=== PATIENT | male | born 1970 | race African-American/Black ===

== ENCOUNTER 2018-10-29 15:03 | Inpatient (IN) | payer MEDICARE ==
[~2018-10-29] VITALS: Ht 175.3 cm; Wt 97.0 kg
[2018-10-29] VITALS (34 sets, daily range): BP systolic 130–207; BP diastolic 81–120; BMI 30.5
--- NOTE | ~2018-10-29 | HEMODYNAMI ---
PATIENT:NINA ESCALANTE MEDICAL RECORD: [id number] : 72 LOCATION:[place] [address] ADMISSION DATE: 10/29/18 Generatedon:10/30/201814:35 Patient name: NINA ESCALANTE Patient #: [id number] SSN: : 1970 Date of study: 10/30/2018 Page: Of Hemodynamic Procedure Report Patient Data Patient Demographics Procedure consent was obtained First Name: NINA Gender: Male Last Name: AVA : 1970 Patient #: [id number] Age: 48 year(s) Race: Black Additional ID: [id number] Contact details [address]: [address] [place] [address] [address] State: [place] City: [place] Zip code: [address] Past Medical History Allergies: No known allergies Admission Admission Data Admission Date: 10/29/2018 Admission Time: 17:11 Admit Source: Other Room #: [facility] Weight (lbs.): 213.85 Weight (kg.): 97 Lab Results Lab Result Date: 10/30/2018 Lab Result Time: 0:00 Biochemistry Name Units Result Min Max BUN mg/dl 22 --(----)-* 7 18 Creatinine mg/dl 1.9 --(----)-* 0.6 1.3 CBC Name Units Result Min Max Hemoglobin g/dl 15.9 --(--*-)-- 13.5 17.5 Procedure Procedure Types Cath Procedure Diagnostic Procedure LHC LHC w/Coronaries Procedure Description Procedure Date Procedure Date: 10/30/2018 Procedure Start Time: 14:22 Procedure End Time: 14:34 Procedure Staff Name Function Adelfo Rivera MD Performing Physician Kaleb Mcleod RT Monitor Sharda Merida RN Nurse Mena Mosher RT Scrub Procedure Data Cath Procedure Fluoroscopy Diagnostic fluoroscopy Total fluoroscopy Time: 3.5 time: 3.5 min min Diagnostic fluoroscopy Total fluoroscopy dose: 639 dose: 639 mGy mGy Contrast Material Contrast Material Type Amount (ml) Isovue 370 70 Entry Location Entry Primary Successful Side Size Upsize Upsize Entry Closure Rodriguez ccessful Closure Location (Fr) 1 (Fr) 2 (Fr) Remarks Device Remarks Radial Right 5 Fr Mechanical artery Compression Estimated blood loss: 5 ml Diagnostic catheters Device Type Used For End Catheter Placement DIAGNOSTIC Lapaz 110cm 5 LV Angiography Fr catheter ([id number]) DIAGNOSTIC JL 3.5 5Fr Left Coronary catheter ([id number]) Angiography DIAGNOSTIC Pigtail 5Fr LV Angiography catheter ([id number]) Procedure Complications No complications Procedure Medications Medication Administration Route Dosage 0.9% NaCl I.V. 100 ml/hr Oxygen etCO2 Nasal cannula 2 l/min Lidocaine 2% added to field 20 Heparin Flush Bag added to field 2 bags (1000units/500ml NS) Radial Cocktail added to field 1 syringe (Verapamil 2mg/Nitro 400mcg/Heparin 1500units) Versed I.V. 2 mg Fentanyl I.V. 50 mcg Fentanyl I.V. 50 mcg Hemodynamics Rest HGB: 15.9 (g/dl) Heart Rate: 80 (bpm) Pressure Samples Time Site Value (mmHg) Purpose Heart Use Rate(bpm) 14:31 LV 103/-5,-4 Snapshot 81 Gradients Valve Time Site Site Mean SEP/DFP Peak To Heart Use 1 2 (mmHg) (sec/min) Peak Rate (mmHg) (bpm) Aortic 14:31 LV AO 86 Snapshots Pre Cath Intra NCS Post Cath Vital Signs Time Heart Resp SPO2 etCO2 NIBP (mmHg) Rhythm Pain Sedation Rate (ipm) (%) (mmHg) Status Level (bpm) 14:01:50 77 12 97 22.4 178/125(156) NSR 0 (11) 10(A) , No pain 14:06:25 77 11 98 26.1 181/127(169) NSR 0 (11) 10(A) , No pain 14:10:49 77 16 97 24.6 173/120(138) NSR 0 (11) 10(A) , No pain 14:15:19 75 16 98 27.6 172/110(148) NSR 0 (11) 10(A) , No pain 14:19:50 82 14 97 24.6 155/116(132) NSR 0 (11) 9(A) , No pain 14:25:17 75 14 98 22.4 162/138(149) NSR 0 (11) 9(A) , No pain 14:29:40 83 13 97 32.8 152/111(127) NSR 0 (11) 9(A) , No pain 14:34:00 79 14 98 17.9 163/104(143) NSR 0 (11) 10(A) , No pain Medications Time Medication Route Dose Verified Delivered Reason Notes E ffectiveness by by 14:03:23 0.9% NaCl I.V. 100 Adelfo Sharda used for ml/hr Miguel Fuad procedure MD WALTER 14:03:31 Oxygen etCO2 2 l/min Adelfo Sharda used for Nasal Miguel Fuad procedure cannula MD WALTER 14:03:36 Lidocaine 2% added 20ml Adelfo Emanuel for local to vial [facility] anesthetic field MD HERNANDEZ 14:03:41 Heparin Flush added 2 bags Adelfo Adelfo used for Bag to [facility] procedure (1000units/500ml field MD HERNANDEZ NS) 14:03:46 Radial Cocktail added 1 Adelfo Emanuel used for ([facility]apamil to syringe [facility]/Nitro field MD HERNANDEZ 400mcg/Heparin 1500units) 14:10:01 Versed I.V. 2 mg Adelfo Sharda for MiguelAnthony Merida sedation MD WALTER 14:10:13 Fentanyl I.V. 50 mcg Adelfo Sharda for MiguelAnthony Merida sedation MD WALTER 14:15:34 Fentanyl I.V. 50 mcg Adelfo Sharda for MiguelAnthony Merida sedation MD WALTERcertified indoor environmentalist Log Time Note 13:30:32 Kaleb Mcleod RT(R) sent for patient. Start room use. 13:37:33 Time tracking: Regular hours (M-F 7:00 - 5:00) 13:37:37 Plan of Care:Hemodynamics will remain stable., Cardiac rhythm will remain stable., Comfort level will be maintained., Respiratory function will remain adequate., Patient/ family verbilizes understanding of procedure., Procedure tolerated without complication., Recovers from procedure without complications.. 13:37:48 Patient Weight : 213.85 lbs 13:38:03 Lab Result : BUN 22 mg/dl 13:38:03 Lab Result : Hemoglobin 15.9 g/dl 13:38:03 Lab Result : Creatinine 1.9 mg/dl 13:55:15 Patient received from CVICU to [facility] 2 Alert and oriented. Rolandosferred to table in Supine position. 13:55:16 Warm blankets applied, and ruchi hugger turned on for patient comfort. 13:55:17 Correct patient and procedure confirmed by team. 13:55:18 Signed procedure consent form obtained from patient. 13:55:19 ECG and BP/O2 sat monitors applied to patient. 14:00:26 Vital chart was started 14:03:23 0.9% NaCl 100 ml/hr I.V. was administered by Sharda Merida RN; used for procedure; 14:03:31 Oxygen 2 l/min etCO2 Nasal cannula was administered by Sharda Merida RN; used for procedure; 14:03:36 Lidocaine 2% 20ml vial added to field was administered by Adelfo Rivera MD; for local anesthetic; 14:03:41 Heparin Flush Bag (1000units/500ml NS) 2 bags added to field was administered by Adelfo Rivera MD; used for procedure; 14:03:46 Radial Cocktail (Verapamil 2mg/Nitro 400mcg/Heparin 1500units) 1 syringe added to field was administered by Adelfo Rivera MD; used for procedure; 14:05:22 Baseline sample Acquired. 14:05:27 Rhythm: paced 14:05:30 Full Disclosure recording started 14:05:53 H&P Date Dictated: 10/29/2018 Within 30 days and on chart.. 14:05:55 Pre-procedure instructions explained to patient. 14:05:56 Pre-op teaching completed and patient verbalized understanding. 14:06:00 Patient NPO since Breakfast. 14:06:25 Patient allergic to No known allergies 14:06:31 Is the patient allergic to Iodine/contrast media? No. 14:06:44 Use device set Radial Dx or PCI 14:06:45 ACIST Syringe (94400) opened to sterile field. 14:06:46 Medline Cath Pack ([id number]) opened to sterile field. 14:06:47 Bag Decanter (2002) opened to sterile field. 14:06:47 DIAGNOSTIC WIRE .035 260cm J wire (023557) opened to sterile field. 14:06:48 ACIST Hand Control (61289) opened to sterile field. 14:06:49 ACIST Manifold (70524) opened to sterile field. 14:06:50 Tegaderm 4 x 4 (1626W) opened to sterile field. 14:06:51 MBrace Wrist Support ([id number]) opened to sterile field. 14:06:53 SHEATH 6FR Slender (29-2415) opened to sterile field. 14:08:37 Admit Source: Other 14:08:47 Was the patient premedicated? No 14:08:55 Is patient on blood thinner?No 14:08:57 Patient diabetic? No. 14:08:59 Previous problem with sedation/anesthesia? No ? 14:09:00 Snore? Yes 14:09:01 Sleep apnea? Yes 14:09:02 Deviated septum? No 14:09:03 Opens mouth fully? Yes 14:09:04 Sticks out tongue? Yes 14:09:05 Airway obstruction? No ? 14:09:08 Dentures? No ? 14:09:11 Pre procedure: right dorsailis pedis pulse 2+ Normal; easily identifiable; not easily obliterated 14:09:15 Pre procedure: left dorsailis pedis pulse 2+ Normal; easily identifiable; not easily obliterated 14:09:21 Patient pain scale 0/10 ?. 14:09:26 IV patent on arrival in right forearm with 0.9% NaCl at KVO. 14:09:28 Lab results completed and on chart. 14:09:37 Right Radial & Right Groin area was prepped with chlora-prep and draped in sterile fashion 14:09:38 Alarms reviewed by R. N. 14:09:38 Sharps counted by scrub and verified by R.N. 14:09:39 Physician arrived 14:09:39 --------ALL STOP TIME OUT------ 14:09:40 Final Timeout: patient, procedure, and site verified with staff and physician. All members of the team are in agreement. 14:09:41 Right groin site verified by team. 14:10:01 Versed 2 mg I.V. was administered by Sharda Merida RN; for sedation; 14:10:13 Fentanyl 50 mcg I.V. was administered by Sharda Merida RN; for sedation; 14:10:19 Maximum allowable Isovue 370 dose 255ml. Physician notified. (300ml for normal creatinines. For patients with creatinine of 1.7 or higher multiply weight(kg) x 5 divided by creatinine.) 14:15:14 Fire Safety Assessment: A--An alcohol-based skin anteseptic being used preoperatively., C--Open oxygen or nitrous oxide is being used., D--An ESU, laser, or fiber-optic light is being used. 14:15:34 Fentanyl 50 mcg I.V. was administered by Sharda Merida RN; for sedation; 14:15:47 Physical assessment completed. ASA score P 2 - A patient with mild systemic disease as per Adelfo Rivera MD. 14:15:51 Sedation plan: IV Moderate Sedation Medication:Versed, Fentanyl 14:22:28 Procedure started. 14:22:36 Local anesthetic to right radial artery with Lidocaine 2% by Adelfo Rivera MD.INITIAL ACCESS ONLY 14:22:48 A 5 Fr sheath was inserted into the Right Radial artery 14:23:36 A DIAGNOSTIC Lapaz 110cm 5 Fr catheter ([id number]) was advanced over the wire and used for LV Angiography. 14:26:32 RCA angiography performed. 14:26:37 Injector settings: Ml/sec: 3, Volume: 6, 14:27:11 Catheter removed. 14:27:30 A DIAGNOSTIC JL 3.5 5Fr catheter ([id number]) was advanced over the wire and used for Left Coronary Angiography. 14:28:56 LCA angiography performed. 14:29:00 Injector settings: Ml/sec: 3, Volume: 6, 14:29:39 Catheter removed. 14:29:59 A DIAGNOSTIC Pigtail 5Fr catheter ([id number]) was advanced over the wire and used for LV Angiography. 14:31:31 LV hemodynamics recorded. 14:31:32 LV gram done using MARTIN 14:31:35 Injector settings: Ml/sec: 5, Volume: 15, 14:32:18 EF : 55 % 14:32:21 Catheter removed. 14:32:43 TR BAND Standard ([id number]) opened to sterile field. 14:32:56 Sheath removed intact; hemostasis achieved with Mechanical Compression to the Right Radial artery. 14:32:58 Procedure ended.(Physican Out) 14:33:05 Fluoroscopy time 03.50 minutes. 14:33:10 Fluoroscopy dose: 639 mGy 14:33:10 Flurop Dose total: 639 14:33:15 Contrast amount:Isovue 370 70ml. 14:33:16 Sharps counted by scrub and verified by R.N. 14:33:18 TR band inflated with 10cc of air. 14:33:20 Insertion/operative site no bleeding no hematoma. 14:33:31 Post right radial artery:stable 14:33:33 Post Procedure Pulses reassessed and unchanged 14:33:35 Post procedure rhythm: unchanged. 14:33:38 Estimated blood loss: 5 ml 14:33:39 Post procedure instruction explained to patient.Patient verbalizes understanding. 14:33:40 Patient needs reinforcement of post procedure teaching. 14:33:46 Procedure and supply charges have been captured, reviewed, submitted and are correct. 14:33:50 Procedure Complication : No complications 14:33:53 Vital chart was stopped 14:33:54 See physician's report for complete and final results. 14:33:58 Report given to CVICU. 14:34:04 Patient transfered to CVICU with Stretcher. 14:34:06 Procedure ended. 14:34:06 Full Disclosure recording stopped 14:34:16 End room use (Document Last) Device Usage Item Name Manufacture Quantity Catalog Hospital Part Current Minimal Lot# / Number Charge Number Stock Stock Serial# Code ACIST Acist 1 38880 614015 182617 839556 20 Syringe Medical (75039) Systems Inc Medline Medline 1 [id number] 870686 04120 953747 5 Cath Pack ([id number]) Bag Microtek 1 2001S 744380 19842 706587 5 Decanter Medical Inc. (2001S) DIAGNOSTIC St True 1 611813 794064 224767 491544 30 WIRE .035 260cm J wire (979853) ACIST Hand Acist 1 15019 885441 948347 322448 5 Control Medical (40072) Systems Inc ACIST Acist 1 39629 540102 514419 570442 5 Manifold Medical (95746) Systems Inc Tegaderm 4 3M 1 1626W 575897 512222 347118 5 x 4 (1626W) MBrace Advanced 1 140-0250-00 421416 05211 452903 5 Wrist Vascular Support Dynamics ([id number]) SHEATH 6FR Terumo 1 [id number] 490419 382250 101320 5 Slender (80-1060) DIAGNOSTIC Terumo 1 40-5017 707734 753733 757263 5 Lapaz 110cm 5 Fr catheter (533767) DIAGNOSTIC Cardinal 1 [id number] 157809 819559 633661 5 JL 3.5 5Fr Health catheter (586446F) DIAGNOSTIC Cardinal 1 [id number] 015588 437782 410807 5 Pigtail 5Fr Health catheter (916463U) TR BAND Terumo 1 [id number] 160311 471685 607789 40 Standard ([id number]) Signature Audit [place] Stage Time Signature Unsigned Intra-Procedure 10/30/2018 Mena Mosher 2:35:12 PM RT(R) Signatures Monitor : Kaleb Mcleod RT Signature : Date : Time : [place] [id number] [place] [address]
--- NOTE | ~2018-10-29 | OP ---
PATIENT NAME: NINA ESCALANTE MEDICAL RECORD: [id number] :72 [place] ADMISSION DATE:10/29/18 SURGEON: BRIAN GUERRERO MD DATE OF OPERATION: 10/30/2018 PROCEDURE: Left heart catheterization, selective coronary angiography, right radial approach. CATHETERS: Radial sheath, Haddock catheter, as well as a JL3.5 and a pigtail. Procedure was well tolerated. The patient returned to the neal. Sheath removed. TR band was placed. FINDINGS: Left ventriculography in 30-degree MARTIN view: Normal wall motion, normal systolic function. CORONARY ANATOMY: LEFT MAIN: Left main is free of disease. LAD: LAD is free of disease in the diagonal system. CIRCUMFLEX: Has an OM1, has about 30% stenosis, no flow obstructive disease. RIGHT CORONARY ARTERY: Dominant artery, free of disease. IMPRESSION: LV systolic function, early atherosclerotic plaquing. TRANSINT:[id number] Voice Confirmation ID: [id number] DOCUMENT ID: [id number] BRIAN GUERRERO MD CC: [id number] DICTATION DATE: 10/30/18 1443 AWNINGS MECHANIC: 10/30/18 1537 ADM IN [facility] [address] [place] [address]
[2018-10-29] MEDS ORDERED: LISINOPRIL10 MG PO (15:10)
[2018-10-29 16:06] LABS: BASOPHILS 0.2 % (0-2); EOSINOPHILS 0 % (0-7); HEMATOCRIT 45.2 % (42.0-54.0); HEMOGLOBIN 16.2 g/dL (13.5-17.5); IMMATURE GRANULOCYTES 0.2 % (0-5); LYMPHOCYTES 15.8 % (15-50); MCH 31.4 pg (26.0-34.0); MCHC 35.8 g/dL (31.0-37.0); MCV 87.6 fL (80.0-100.0); MEAN PLATELET VOLUME 10.4 fL (7.4-10.4); MONOCYTES 0.3 % (2-11); NEUTROPHILS 83.5 % (40-80); PLATELET COUNT 222 10x3/uL (130-400); RBC 5.16 10x6/uL (4.20-6.10); RDW 13.9 % (11.5-14.5); WBC 6.3 10x3/uL (4.8-10.8)
[2018-10-29 16:23] LABS: INR 1.1 (0.85-1.17); PROTIME 13.7 SECONDS (11.6-15.0)
[2018-10-29 16:31] LABS: ALBUMIN 3.9 g/dL (3.4-5.0); ALKALINE PHOSPHATASE 69 U/L (46-116); ALT (SGPT) 29 U/L (10-68); BILIRUBIN - TOTAL 0.41 mg/dL (0.2-1.3); CALC OSMOLALITY 279 mosm/kg (275-300); CALCIUM 9.3 mg/dL (8.5-10.1); CARBON DIOXIDE 22.3 mmol/L (21.0-32.0); CHLORIDE - SERUM 103 mmol/L (98-107); CREATININE - SERUM 1.8 mg/dL (0.6-1.3); GLUCOSE 130 mg/dL (74-106); POTASSIUM - SERUM 3.8 mmol/L (3.5-5.1); PROTEIN - SERUM 8.3 g/dL (6.4-8.2); SODIUM 138 mmol/L (136-145); UREA NITROGEN 17 mg/dL (7-18); eGFR NON AFRICAN AMERICAN 43 mL/min (90-120)
[2018-10-29 16:34] LABS: CKMB 4.5 U/L (0.0-3.6); CREATINE KINASE 597 UL (21-232); MAGNESIUM - SERUM 1.8 mg/dL (1.8-2.4)
[2018-10-29 16:35] LABS: TROPONIN-I < 0.017 ng/mL (0.000-0.060)
--- NOTE | 2018-10-29 18:33 | NUR ---
174 PT RECIEVED ALERT AN DORIENTED ON ROOM AIR DENIES PAIN OF ANY KIND, ER NURSE STATED SHE DID NOT NOTIFY CARDIOLOGY OF CONSULT, SCHEDULE SHOWING [facility] [employer] ASSISTANT, PAGED TWICE, CALLED ER WHO STATED [facility] [employer] [facility] ASSISTANT, PAGED WITH NO ANSWER, BILAT 18G PIVS WITH CARDENE 7.5MG/HR TO R AC, URINAL PROVIDED, CALL LIGHT WITHIN REACH 1830 DR SAHNI CALLED TO NOTIFY THAT EKG SHOWS ST ELEVATION AND UNABLE TO GET ANSWER FROM CARDIOLOGY, ORDERS FOR ECHO
--- NOTE | 2018-10-29 18:52 | NUR ---
SPOKE WITH DR SAHNI SAHIL CHEN, ORDERS TO CHANGE BP PARAMETERS FOR TITRATION BETWEEN 160-180 AND START LISINOPRIL 40MG DAILY AND NOW
--- NOTE | 2018-10-29 19:20 | NUR ---
PT RECEIVED WITH EYES CLOSED AND CHEST RISING. NO S/S OF DISTRESS. EASILY AWOKEN TO VERBAL STIMULI. BP ABOVE NORMAL RANGE AND RECEIVING CARDENE IV TO RIGHT FOREARM. NO COMPLAINTS OF PAIN NOTED. OTHER VITALS STABLE. CALL LIGHT IN REACH. WILL CONTINUE TO OBSERVE.
--- NOTE | 2018-10-29 21:15 | NUR ---
PT RESTING WITH EYES CLOSED AND CHEST RISING. EASILY AWOKEN TO VERBAL STIMULI. B/P DECREASING WITH CARDENE BEING TITRATED SEE FLOW SHEET. CALL LIGHT IN REACH. WILL CONTINUE TO OBSERVE.
[2018-10-29 23:34] LABS: CKMB 5.8 U/L (0.0-3.6); CREATINE KINASE 575 UL (21-232)
--- NOTE | 2018-10-29 23:40 | NUR ---
REASSESSMENT COMPLETED, SEE FLOW SHEET. VSS. CALL LIGHT IN REACH. WILL CONTINUE TO OBSERVE.
--- NOTE | 2018-10-29 23:40 | NUR ---
REASSESSEMENT COMPLETED, SEE FLOW SHEET. URINE COLLECTED AND SENT TO LAB. VSS. CALL LIGHT IN REACH. WILL CONTINUE TO OBSERVE.
[2018-10-30] VITALS (28 sets, daily range): BP systolic 105–177; BP diastolic 79–111; Ht 175.3 cm; Wt 97.0 kg
--- NOTE | 2018-10-30 00:52 | NUR ---
URINE COLLECTED PER ORDER AND SENT TO LAB.
[2018-10-30 01:36] LABS: UDS - AMPHET NEGATIVE QUAL (NEGATIVE); UDS - BARB NEGATIVE QUAL (NEGATIVE); UDS - BENZO NEGATIVE QUAL (NEGATIVE); UDS - COCAINE NEGATIVE QUAL (NEGATIVE); UDS - OPIATE NEGATIVE QUAL (NEGATIVE); UDS - PCP NEGATIVE QUAL (NEGATIVE); UDS - THC POSITIVE QUAL (NEGATIVE)
--- NOTE | 2018-10-30 04:02 | NUR ---
REASSESSMENT COMPLETED, SEE FLOW SHEET. NO S/S OF DISTRESS. CALL LIGHT IN REACH. WILL CONTINUE TO OBSERVE.
[2018-10-30 04:14] LABS: BASOPHILS 0 % (0-2); EOSINOPHILS 0 % (0-7); HEMATOCRIT 44.7 % (42.0-54.0); HEMOGLOBIN 15.9 g/dL (13.5-17.5); IMMATURE GRANULOCYTES 0.3 % (0-5); MCH 31.3 pg (26.0-34.0); MCHC 35.6 g/dL (31.0-37.0); MEAN PLATELET VOLUME 10.7 fL (7.4-10.4); MONOCYTES 3.6 % (2-11); NEUTROPHILS 80.1 % (40-80); PLATELET COUNT 253 10x3/uL (130-400); RBC 5.08 10x6/uL (4.20-6.10); RDW 14.1 % (11.5-14.5)
[2018-10-30 04:22] LABS: WBC 11.5 10x3/uL (4.8-10.8)
[2018-10-30 04:47] LABS: CALC OSMOLALITY 281 mosm/kg (275-300); CALCIUM 9.4 mg/dL (8.5-10.1); CARBON DIOXIDE 26.1 mmol/L (21.0-32.0); CHLORIDE - SERUM 103 mmol/L (98-107); CKMB 5.9 U/L (0.0-3.6); CREATINE KINASE 532 UL (21-232); CREATININE - SERUM 1.9 mg/dL (0.6-1.3); GLUCOSE 114 mg/dL (74-106); MAGNESIUM - SERUM 1.7 mg/dL (1.8-2.4); PHOSPHOROUS 2.3 mg/dL (2.5-4.9); POTASSIUM - SERUM 4.2 mmol/L (3.5-5.1); SODIUM 139 mmol/L (136-145); TROPONIN-I 0.033 ng/mL (0.000-0.060); eGFR NON AFRICAN AMERICAN 40 mL/min (90-120)
[2018-10-30 04:48] LABS: UREA NITROGEN 22 mg/dL (7-18)
--- NOTE | 2018-10-30 06:20 | NUR ---
ELECTROLYTE PROTOCOLS FOLLOWED FOR PHOSPHOROUS 2.3 AND MAGNESIUM OF 1.7. PT TOLERATED WELL. NO COMPLAINTS MADE KNOWN. CALL LIGHT IN REACH. WILL CONTINUE TO OBSERVE.
--- NOTE | 2018-10-30 07:30 | NUR ---
AA&OX 4. DENIES HAVING PAIN AT THIS TIME. ON ROOM AIR. BP ELEVATED. PIV NOTED ON R-FOREARM, R-AC AND L-AC ALL SALINE LOCK. SHIFT ASSESSMENT COMPLETED. SEE FLOWSHEET FOR MORE DETAILS. PT AWARE OF LIMITATIONS. CALL LIGHT IN REACH. WILL CONTINUE TO MONITOR.
--- NOTE | 2018-10-30 09:30 | NUR ---
AM MEDS HAVE BEEN GIVEN. PT RESTING COMFORTABLY. DENEIS FURTHER NEEDS. WILL COTNINUE TO MONITOR.
[2018-10-30 10:41] LABS: TROPONIN-I 0.033 ng/mL (0.000-0.060)
[2018-10-30 10:42] LABS: CREATINE KINASE 545 UL (21-232)
--- NOTE | 2018-10-30 11:10 | NUR ---
RE-ASSESSMENT COMPLETED. NO ACUTE CHANGES FROM PREVIOUS ASSESSMENT. CONSENT FORMS HAVE BEEN SINGED AND PLACED IN CHART. PT DOES NOT WANT BLOOD PRODUCTS. WILL CONTINUE TO MONITOR.
--- NOTE | 2018-10-30 11:31 | NUR ---
CREATININE IS 1.[address] RODNEY NOTIFIED.
--- NOTE | 2018-10-30 12:34 | NUR ---
DR. SAHNI NOTIFIED OF BP CONTINUING TO BE HIGH. NO ACTION AT THIS TIME. WILL WAIT FOR BP MEDS TO START ACTING.
--- NOTE | 2018-10-30 13:07 | NUR ---
PREOP MEDS GIVEN AT THIS TIME PER ORDERS. WILL CONTINUE TO MONITOR.
--- NOTE | 2018-10-30 13:54 | NUR ---
PT NOT IN ROOM AT THIS TIME. TRANSFERRED TO GAS ROLLER OPERATOR.
--- NOTE | 2018-10-30 14:54 | NUR ---
PT BACK IN ROOM. TR BAND ON RIGHT WRIST. PT AWAKE AND ALERT. DENIES ANY PAIN AT THIS TIME. NS INFUSING AT 200ML/HR PER ORDERS. ON ROOM AIR. VSS. WILL CONTINUE TO MONITOR.
--- NOTE | 2018-10-30 15:03 | CN ---
PATIENT NAME:NINA ESCALANTE MEDICAL RECORD: [id number] : 72 LOCATION:[place] ADMIT DATE: 10/29/18 ACCOUNT: [id number] CONSULTING PHYSICIAN: BRIAN GUERRERO MD REFERRING PHYSICIAN: NISSA SAHNI MD DATE OF CONSULTATION: 10/30/2018 HISTORY OF PRESENT ILLNESS: A 48-year-old gentleman with a history of hypertension, intermittently difficult to control, intermittently compliant. Unfortunately strong family history of coronary artery disease. Also has history of hyperglycemia and smoking. Presented to the local ER with arm pain, heaviness in the chest, shortness of breath. Found to have elevated troponin consistent with NSTEMI, difficult to assess type 1 or type 2 given the hypertensive urgency. Again, multiple risk factors for coronary artery disease. We are asked to see him regarding his cardiovascular status. PAST MEDICAL HISTORY: Includes hyperglycemia, hypertension. ALLERGIES: None known. MEDICATIONS: Typically carvedilol 3.125 every day, which he intermittently takes and HCTZ 25 every day, again intermittently takes. SOCIAL HISTORY: He smokes about a pack a day. Social drinker. No set exercise program. Does work multimedia manager. REVIEW OF SYSTEMS: The patient reports easy bruising but reports no swollen glands. The patient reports no fever, no night sweats, no significant weight gain, no significant weight loss. No significant exercise tolerance. The patient reports no dry eyes, no irritation, no vision change. Patient reports no difficulty hearing and no ear pain. Patient reports no frequent nose bleeds or nose and sinus problems. Patient reports on arm pain on exertion. No shortness of breath while lying down. No history of heart murmur. Patient reports no cough, no wheezing or coughing up blood. Patient reports no abdominal pain, no vomiting. Normal appetite. No diarrhea and not vomiting blood. No nausea and no constipation. Patient reports no incontinence. No difficulty urinating. No hematuria. No increased frequency. Patient reports no muscle aches. No weakness, no arthralgias, no back pain. No swelling of the extremities. Patient reports no abnormal mole, no jaundice, no rashes. Reports no loss of consciousness. No weakness and no numbness. No seizures, dizziness, or headaches. The patient reports no depression, no sleep disturbance, feeling safe in a relationship and no alcohol abuse. Patient reports on fatigue. Reports no runny nose or sinus pressure. No itching, no hives, and no frequent sneezing. PHYSICAL EXAMINATION: GENERAL: Pleasant gentlemen, in no acute distress. VITAL SIGNS: Blood pressure 192/102, pulse 72 and regular. HEENT: Normocephalic, atraumatic. NECK: No bruits noted. HEART: Regular. S4 gallop is noted. LUNGS: Fairly good air excursion. A few basal crackles. ABDOMEN: Soft, nontender. EXTREMITIES: Pulses 2+. No edema. NEUROLOGIC: Grossly intact. CONSULT REPORT [id number] NINA ESCALANTE DIAGNOSTIC DATA: ECG shows LVH with ST-T changes. IMPRESSION: NSTEMI, multiple risk factors for coronary artery disease, either type 1 or type 2 or combination of the above. PLAN: Plan for angiography, intervention based on above. TRANSINT:[id number] Voice Confirmation ID: [id number] DOCUMENT ID: [id number] BRIAN GUERRERO MD at 1503 CC: [id number] DICTATION DATE: 10/30/18906 PROGRAM SUPERVISOR: 10/30/18 1141 ADM IN [facility] [address] [place] [id number]
--- NOTE | 2018-10-30 16:20 | NUR ---
TR BAND REMOVED PER PROTOCOL. NO BLEEDING NOTED. TAGEDERM DRESSING AND 2X2 APPLIED TO AREA.
--- NOTE | 2018-10-30 22:45 | NUR ---
O2 REMOVED FROM PATIENT DUE TO SATS STAYING 99-100%. PATIENT DENIES ANY NEEDS
[2018-10-31] VITALS (12 sets, daily range): BP systolic 142–184; BP diastolic 85–125
[2018-10-31 06:37] LABS: BASOPHILS 0.1 % (0-2); EOSINOPHILS 0.2 % (0-7); HEMATOCRIT 43.4 % (42.0-54.0); HEMOGLOBIN 15.5 g/dL (13.5-17.5); IMMATURE GRANULOCYTES 0.2 % (0-5); MCH 31.4 pg (26.0-34.0); MCHC 35.7 g/dL (31.0-37.0); MEAN PLATELET VOLUME 10.6 fL (7.4-10.4); MONOCYTES 6.6 % (2-11); NEUTROPHILS 64.9 % (40-80); PLATELET COUNT 236 10x3/uL (130-400); RBC 4.93 10x6/uL (4.20-6.10); RDW 14.4 % (11.5-14.5); WBC 10.9 10x3/uL (4.8-10.8)
[2018-10-31 07:31] LABS: ANION GAP 13.8 mmol/L (8-16); CALCIUM 8.9 mg/dL (8.5-10.1); CARBON DIOXIDE 26.5 mmol/L (21.0-32.0); POTASSIUM - SERUM 4.3 mmol/L (3.5-5.1)
[2018-10-31 07:32] LABS: PHOSPHOROUS 3.7 mg/dL (2.5-4.9)
--- NOTE | 2018-10-31 10:13 | NUR ---
DR SAHNI BY TO SEE PATIENT. PLANS TO SEND PATIENT HOME TODAY WITH FOLLOW UP IN CLINIC IN 1-2 WEEKS.
[2018-10-31] MEDS ORDERED: Nicoderm [PBKC] TRANSDERM ×2 (10:49→11:25)
[2018-10-31] MEDS ORDERED: COREG12.5 MG PO ×2 (10:50→11:25)
[2018-10-31] MEDS ORDERED: FLOMAX0.4 MG PO ×2 (10:50→11:25)
[2018-10-31] MEDS ORDERED: LISINOPRIL40 MG PO ×2 (10:50→11:25)
[2018-10-31] MEDS ORDERED: NORVASC10 MG PO ×2 (10:50→11:25)
[2018-10-31] MEDS ORDERED: CHLORTHALIDONE25 MG PO ×2 (10:51→11:25)
--- NOTE | 2018-10-31 11:07 | NUR ---
F/U APPT MADE FOR 11/07/18 AT 10:[address] SAHNI
--- NOTE | 2018-10-31 11:19 | EC ---
PATIENT:NINA ESCALANTE DATE OF SERVICE: 10/29/18 SEX: M MEDICAL RECORD: [id number] DATE OF : 72 LOCATION:[place] [address] AGE OF PATIENT: 48 ADMISSION DATE: 10/29/18 REFERRING PHYSICIAN: INTERPRETING PHYSICIAN: REESE HAIRSTON MD ECHOCARDIOGRAM REPORT ECHO CHARGES 4 ECHO COMPLETE Date: 10/30/18 CLINICAL DIAGNOSIS: HTN/ST ELEVATION ECHOCARDIOGRAPHIC MEASUREMENTS (adult normal given) AC root (d.<3.7cm) 3.7 cm LV Septum d (<1.2 cm> 1.4 cm Valve Excursion 2.5 cm LV Septum (systole) 1.8 cm Left Atria (s.<4.0cm> 4.2 cm LVPW d(<1.2cm) 1.4 cm RV (d.<2.3cm) 2.4 cm LVPW (sytole) 2.0 cm LV diastole(<5.6CM) 5.7 cm MV E-F(>70mm/sec) cm LV systole 3.4 cm LVOT Diameter 2.0 cm MV exc.(>10mm) cm Est.ejection fraction (50-75%) % DOPPLER: LVIT cm/sec A 62.0 cm/sec E 84.0 cm/sec LA cm/sec RVSP 17.4 mmHg LVOT 97.0 cm/sec AOP1/2T m/s Asc. Ao 143 cm/sec RVOT 73.0 cm/sec RA cm/sec PA 101 cm/sec AV Gradient Peak 8.2 mmHg AV Mean 4.9 mmHg AV Area 1.8 cm MV Gradient Peak 4.0 mmHg MV Mean 1.7 mmHg MV Area cm COMMENTS: Weight Loss Centre Manager: 1 SYBIL SHARIFOE Enrollment Management Vice President: 1 Dr. Hairston TAPE# PACS Pericardial Effusion N DATE OF SERVICE: FINDINGS: 1. Left ventricular chamber size is mildly dilated. Left ventricular systolic function is normal. Overall ejection fraction is estimated at 60%. 2. Left atrium is enlarged at 4.2 cm. Right atrium and right ventricular chamber sizes are as well mildly dilated. 3. Valvular structures have normal structure and motion. 4. Doppler interrogation reveals mild mitral regurgitation. No other valvular insufficiency or stenosis. Pulmonary systolic pressure is estimated at 17 mmHg. ECHOCARDIOGRAM REPORT [id number] NINA ESCALANTE 5. No evidence of pericardial effusion or left ventricular thrombus. TRANSINT:[id number] Voice Confirmation ID: [id number] DOCUMENT ID: [id number] REESE HAIRSTON MD at 1119 CC: [id number] DICTATION DATE: 10/30/18 1210 GERM DRIER: 10/30/18 1346 ADM IN [place] [address] [place] [address]
--- NOTE | 2018-10-31 13:02 | NUR ---
PIVX3 REMOVED, NO BLEEDING. TIPS INTACT. DISCHARGE INSTRUCTIONS REVIEWED WITH PT AND . UNDERSTANDS PLAN FOR FOLLOW UP AND WHERE MEDICATIONS ARE TO BE PICKED UP. PT ESCORTED BY WHEELCHAIR TO AWAITING CAR.
== END 2018-10-31 13:03 | disposition home or self-care (01) | DRG 281 ==
LOC: D.ER 15:03 → D.CVICU 17:11
PROVIDERS: Family Medicine; Internal Medicine Interventional Cardiology; ADMIT Internal Medicine Nephrology; ATTEND Internal Medicine Nephrology
PROC: B2151ZZ Fluoroscopy of Left Heart using Low Osmolar Contrast (ICD-10-PCS; 2018-10-30)
PROC: 4A023N7 Measurement of Cardiac Sampling and Pressure, Left Heart, Percutaneous Approach (ICD-10-PCS; 2018-10-30)
PROC: B2111ZZ Fluoroscopy of Multiple Coronary Arteries using Low Osmolar Contrast (ICD-10-PCS; principal; 2018-10-30 13:30)
DX: I21.4 Non-ST elevation (NSTEMI) myocardial infarction (principal); F17.203 Nicotine dependence unspecified, with withdrawal; I16.1 Hypertensive emergency; Z82.49 Family history of ischemic heart disease and other diseases of the circulatory system; I12.9 Hypertensive chronic kidney disease with stage 1 through stage 4 chronic kidney disease, or unspecified chronic kidney disease; N18.3 Chronic kidney disease, stage 3 (moderate); N40.0 Benign prostatic hyperplasia without lower urinary tract symptoms